=== PATIENT | male | born 1970 | race Two or more races ===

== ENCOUNTER 2016-08-25 09:18 | Emergency (ER) | payer SELFPAY ==
--- NOTE | ~2016-08-25 | ER ---
PATIENT'S NAME: STEFANIE CACERES [facility] AGE: 45 Y [address] ROOM: [place] [address] LOCATION: [facility] ADMIT DATE: 08/25/2016 ER/Outpatient Report DISCHARGE DATE: 08/25/2016 FAMILY PHYSICIAN: PHYSICIAN, NO ATTENDING PHYSICIAN: Gerald Garcia CHIEF COMPLAINT: Left tongue pain. HISTORY OF PRESENT ILLNESS: The patient states that he woke up this morning with left tongue pain. It did wake him up out of sleep. He has never had anything like this before. He states that he has been trying Tylenol and ibuprofen for that. He states that he is a smoker. No other changes. He used some salt water gargles. He states it is very painful and tender to even swallow. It is his tongue, not his teeth, and he has no difficulty swallowing, once it has made transition to the pharynx. He denies any swelling or other issues. PAST MEDICAL HISTORY: Documented on the record and reviewed by me. SOCIAL HISTORY: Documented on the record and reviewed by me. MEDICATIONS: Documented on the record and reviewed by me. ALLERGIES: DOCUMENTED ON THE RECORD AND REVIEWED BY ME. REVIEW OF SYSTEMS: All systems reviewed and negative except as noted in the HPI. PHYSICAL EXAMINATION: VITAL SIGNS: Blood pressure 130/82, pulse is 120, respiratory rate is 20, temperature 97.2, SpO2 is 96% on room air. Pain is rated at 9/10. GENERAL: Age-appropriate male. No obvious distress, in some [id number]-[id number] discomfort, sitting upright on exam table. NEUROLOGIC: Awake and alert. GCS 15. No focal deficits. No asymmetry. Wearing sunglasses with no photosensitivity. HEENT: Normocephalic, atraumatic. The eyes are PERRL. Conjunctivae and sclerae are white and clear. Neck is supple. Trachea is midline. The oropharynx is notable for teeth in poor repair. The left lateral lingual mucosa is notable for a small area of approximately 5 mm that slightly excoriated, slightly discolored. No bleeding, no purulence, no fluctuance, no PATIENT'S NAME: STEFANIE CACERES [facility] AGE: 45 Y [address] ROOM: [place] [address] LOCATION: [facility] ADMIT DATE: 08/25/2016 ER/Outpatient Report DISCHARGE DATE: 08/25/2016 FAMILY PHYSICIAN: PHYSICIAN, NO ATTENDING PHYSICIAN: Gerald Garcia tenderness, no induration. No surrounding erythema. Not ulcer-like. CHEST: Even unlabored respirations. The pulse is regular. ABDOMEN: Benign. SKIN: Warm, dry, and intact. LABS AND X-RAYS: None. IMPRESSION: Left tongue pain with possible excoriation. EMERGENCY DEPARTMENT COURSE: The patient seen and evaluated. He was reassured. I do not think that this is tongue cancer and is more consistent with excoriation. I have recommended topical anesthetic. He should follow up in a few days, if not improving, as he does have some risk factors including smoking. All questions were answered. The patient was discharged in good condition. MD MELISSA HUGHES/babatunde /[id number] d: 08/25/16 1519 t: 08/26/16 0945, OUTPATIENT REPORT
[~2016-08-25 09:18] MED LIST: COLACE100 MG PO; NORCO 5-325 MG1 TAB PO
== END 2016-08-25 10:04 | disposition disaster alternative care site (69) ==
LOC: GMED 09:18
DX: K14.6 Glossodynia (principal)

== ENCOUNTER 2016-10-31 09:39 | Emergency (ER) | payer SELFPAY ==
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
== END 2016-10-31 12:42 | disposition disaster alternative care site (69) ==
LOC: GACC 09:39
DX: M54.2 Cervicalgia (principal); F17.210 Nicotine dependence, cigarettes, uncomplicated; Z98.890 Other specified postprocedural states; V19.9XXA Pedal cyclist (driver) (passenger) injured in unspecified traffic accident, initial encounter; Y92.89 Other specified places as the place of occurrence of the external cause

== ENCOUNTER 2016-11-16 07:46 | Emergency (ER) | payer SELFPAY ==
--- NOTE | ~2016-11-16 | ER ---
PATIENT'S NAME: STEFANIE CACERES [facility] AGE: 46 Y [address] ROOM: [place] [address] LOCATION: ED ADMIT DATE: 11/16/2016 ER/Outpatient Report DISCHARGE DATE: 11/16/2016 FAMILY PHYSICIAN: PHYSICIAN, NO ATTENDING PHYSICIAN: Gerald Garcia CHIEF COMPLAINT: Blood in the urine. HISTORY OF PRESENT ILLNESS: Mr. Caceres presents for evaluation of hematuria. His urine has been red for about a week. He has been noticing worsening symptoms and today felt like he could not void completely. He denies any fevers or chills, but has had some right-sided flank pain since this started. He denies any frequency or urgency, but does state he feels like he does not empty his bladder all the way and when he does urinate, there is some burning at the tip of the penis. He denies any unusual discharge. No pain in the scrotum. No change in bowel or bladder habits. No other acute issues. PAST MEDICAL HISTORY: Documented on the record and reviewed by me. SOCIAL HISTORY: Documented on the record and reviewed by me. MEDICATIONS: Documented on the record and reviewed by me. ALLERGIES: DOCUMENTED ON THE RECORD AND REVIEWED BY ME. REVIEW OF SYSTEMS: All systems were reviewed and negative except as noted in the HPI. PHYSICAL EXAMINATION: VITAL SIGNS: Blood pressure 154/93, pulse 100, respiratory rate is 20, temperature 97.0, and SpO2 is 98% on room air. Pain is rated at 6/10. GENERAL: Age-appropriate male, no obvious pain or distress, sitting upright on the exam table. HEENT: Normocephalic atraumatic. Eyes are PERRL. Oropharynx is clear. NECK: Supple. Trachea is midline. CHEST: Heart is regular rate and rhythm with no murmurs. LUNGS: Clear to auscultation bilaterally with no rhonchi, wheezes, or rales. ABDOMEN: Soft, nontender, and nondistended. No rebound or guarding. : Normal male genitalia. PATIENT'S NAME: STEFANIE CACERES [facility] AGE: 46 Y [address] ROOM: [place], [place] [address] LOCATION: ED ADMIT DATE: 11/16/2016 ER/Outpatient Report DISCHARGE DATE: 11/16/2016 FAMILY PHYSICIAN: PHYSICIAN, NO ATTENDING PHYSICIAN: Gerald Garcia RECTAL EXAM: Normal rectal tone. Prostate is minimally tender and nonboggy, not enlarged. BACK: Normal to inspection and palpation. No CVA tenderness. Tenderness over the right lateral flank. SKIN: Without rashes. NEURO: The patient is awake and alert. GCS is 15. No focal deficits. No asymmetry. LABORATORY DATA AND X-RAYS: CT of the abdomen, stone protocol, with right lower pole renal stone, nonobstructing, with no ureterolithiasis and probable cystitis. Renal panel without appreciable abnormality of electrolytes or renal function. Phosphorus is slightly low at 1.9. Urinalysis: 500 leukocytes, 100 protein, 250 blood. Micro: Full field of WBCs and RBCs, 0 to 2 epithelials, and few bacteria. CBC without appreciable abnormality. Culture is pending. IMPRESSION: Gross hematuria without evidence of urinary retention. EMERGENCY DEPARTMENT COURSE: The patient was seen and evaluated. Presentation is not consistent with prostatitis. No clear evidence of urinary infection. Culture is pending. CT scan of the abdomen does not reveal any evidence of the pathology of the ureterolithiasis. The patient was feeling much better after he was able to void. We did confirm that his postvoid residual was near 0. He was otherwise doing well. I discussed the case with Dr. Rich, urologist, and the patient is to follow up with him within the next week or so, at his earliest convenience for further evaluation and likely cystoscopy. MD MELISSA HUGHES/babatunde /[id number] d: 11/16/164 t: 12/06/164, OUTPATIENT REPORT
[2016-11-16 08:18] LABS: BILIRUBIN URINE NEGATIVE (NEGATIVE); BLOOD URINE 250 /UL (NEGATIVE); COLOR URINE RED (YELLOW); GLUCOSE URINE NEGATIVE (NEGATIVE); KETONE URINE NEGATIVE (NEGATIVE); LEUKOCYTES URINE 500 /UL (NEGATIVE); NITRITE URINE NEGATIVE (NEGATIVE); PROTEIN URINE 100 mg/dL (NEGATIVE); SPEC GRAVITY URINE 1.015 (1.003-1.035); TURBIDITY URINE 2+ (CLEAR); UROBILINOGEN URINE NORMAL (NORMAL)
[2016-11-16 08:24] LABS: BACTERIA URINE FEW (NEGATIVE); EPITHELIAL URINE 0-2 #/HPF (NEGATIVE); MUCUS URINE 2+ (NEGATIVE); RBC URINE FULL FIELD #/HPF (NEGATIVE); WBC URINE FULL FIELD #/HPF (NEGATIVE)
[2016-11-16 08:27] LABS: BASOPHIL % 0.4 %; EOSINOPHIL # 0.2 K/uL (0.0-0.5); EOSINOPHIL % 2.5 %; HEMATOCRIT 44.9 % (37.0-53.0); HEMOGLOBIN 15.2 g/dL (12.0-17.0); IMMATURE GRANULOCYTE % 0.2 %; LYMPHOCYTE # 1.5 K/uL (0.8-4.0); LYMPHOCYTE % 17.9 %; MCH 28.6 pg (27.0-34.0); MCHC 33.9 gm/dL (32.0-36.5); MCV 84.6 fl (83.0-98.0); MONOCYTE # 0.4 K/uL (0.0-1.0); MONOCYTE % 5.3 %; NEUTROPHIL # (ANC) 6.1 K/uL (1.4-9.0); NEUTROPHIL % 73.7 %; NRBC % 0 /100WBC (0-0.00); PLATELET COUNT 293 K/uL (150-450); RBC 5.31 M/uL (4.00-6.00); RDW-CV 13.6 % (11.9-14.6); WBC 8.3 K/uL (4.0-11.0)
[2016-11-16 08:40] LABS: INR - (THERAPEUTIC) 0.98 (0.92-1.07); PROTIME 10.3 SECONDS (9.8-11.4); PTT 28 SECONDS (25-32)
[2016-11-16 08:44] LABS: ALBUMIN 3.6 gm/dL (3.5-5.0); ANION GAP 8.7 (10.0-19.0); BLOOD UREA NITROGEN 8 mg/dL (6-24); CALCIUM 8.7 mg/dL (8.5-10.5); CHLORIDE 104 mMol/L (96-110); CO2 33 mMol/L (22-32); ESTIMATED GFR (MDRD EQUATION) > 60; POTASSIUM 3.7 mMol/L (3.7-5.1); SODIUM 142 mMol/L (135-145)
[2016-11-16 08:47] LABS: PHOSPHORUS 1.9 mg/dL (2.5-4.9)
== END 2016-11-16 09:42 | disposition disaster alternative care site (69) ==
LOC: GMED 07:46
PROVIDERS: Emergency Medicine
DX: N20.0 Calculus of kidney (principal); R31.0 Gross hematuria; F17.210 Nicotine dependence, cigarettes, uncomplicated; Z98.890 Other specified postprocedural states